=== PATIENT | male | born 1995 | race Caucasian/White ===

== ENCOUNTER 2018-05-25 22:14 | Emergency (ER) | payer OTHER ==
[~2018-05-25] VITALS: Ht 180.3 cm; Wt 68.9 kg
[2018-05-25 22:22] VITALS: BP_SYST 131
--- NOTE | 2018-05-25 22:30 | NUR ---
Dr. Ricci at bedside.
--- NOTE | 2018-05-25 22:30 | NUR ---
Pt states that he cut his finger on a lid while opening the trash can. ~0.5 cm skin avulsion to distal phalange of 3rd digit of LHA. No active bleeding noted.
--- NOTE | 2018-05-25 22:30 | NUR ---
Patient to ER bed 1 to gown for evaluation. Side rails up. Report given to Josef SALES.
[2018-05-25] MEDS ORDERED: TETANUS IMMUNE GLOBULIN/PF 250 UNITS/SYR (HYPERTET) I.M. ONE (22:45)
--- NOTE | 2018-05-25 23:06 | NUR ---
Patient given written and verbal discharge instructions and verbalizes understanding. ER MD discussed with patient the results and treatment provided. Patient in stable condition. ID arm band removed. Rx of Clindamycin given. Patient educated on pain management and to follow up with PMD. Pain Scale 1/10. Opportunity for questions provided and answered. Medication side effect fact sheet provided.
== END 2018-05-25 23:06 | disposition home or self-care (01) ==
LOC: SED 22:14
DX: S61.203A Unspecified open wound of left middle finger without damage to nail, initial encounter (principal); R03.0 Elevated blood-pressure reading, without diagnosis of hypertension; Z88.6 Allergy status to analgesic agent; Z88.8 Allergy status to other drugs, medicaments and biological substances; W26.8XXA Contact with other sharp object(s), not elsewhere classified, initial encounter; Y93.89 Activity, other specified; Y92.89 Other specified places as the place of occurrence of the external cause; Y99.8 Other external cause status
CPT/HCPCS: 90471; 99283; J1670